=== PATIENT | male | born 1975 | race African-American/Black ===

== ENCOUNTER 2021-12-12 18:33 | Emergency (ER) | payer MEDICAID, OTHER ==
[2021-12-12 18:33] VITALS: BP 148/92
[2021-12-12] MEDS ORDERED: NEOSPORIN OINT 0.9 GM PKT TOP ONE (22:50)
[2021-12-12] MEDS ORDERED: LIDOCAINE 1% MDV 20ML VIAL SC ONE (22:50)
== END 2021-12-13 | disposition home or self-care (01) ==
LOC: M ED 18:33
DX: S01.511A Laceration without foreign body of lip, initial encounter (principal); S01.512A Laceration without foreign body of oral cavity, initial encounter; W50.0XXA Accidental hit or strike by another person, initial encounter; Y92.410 Unspecified street and highway as the place of occurrence of the external cause; Y93.64 Activity, baseball; Y99.9 Unspecified external cause status; F17.200 Nicotine dependence, unspecified, uncomplicated

== ENCOUNTER 2022-09-28 05:50 | Emergency (ER) | payer OTHER ==
[~2022-09-28] VITALS: Ht 160 cm; Wt 80.7 kg
[2022-09-28 05:51] VITALS: BP 124/84
== END 2022-09-28 07:15 | disposition home or self-care (01) ==
LOC: M ED 05:50
DX: S76.311A Strain of muscle, fascia and tendon of the posterior muscle group at thigh level, right thigh, initial encounter (principal); Y93.01 Activity, walking, marching and hiking; Y92.009 Unspecified place in unspecified non-institutional (private) residence as the place of occurrence of the external cause

== ENCOUNTER 2024-04-16 05:56 | Emergency (ER) | payer OTHER ==
[~2024-04-16] VITALS: Ht 160 cm; Wt 79.1 kg
[2024-04-16 06:48] LABS: BASO % 0.1 % (0.0-1.0); EOS # 0.1 10^3/uL (0.0-0.5); EOS % 1.6 % (0.0-3.0); HEMATOCRIT 42.1 % (42.0-52.0); HEMOGLOBIN 14.3 g/dl (13.5-17.5); LYMPH % 14.1 % (24.0-44.0); MEAN CORPUSCULAR HEMOGLOBIN 28.5 pg (27.0-33.0); MEAN CORPUSCULAR VOLUME 83.9 fl (80.0-96.0); MONO # 0.4 10^3/uL (0.0-0.8); MONO % 6.2 % (2.0-8.0); NEUTROPHILS # 5.5 10^3/uL (1.5-8.5); NEUTROPHILS % 77.7 % (36.0-66.0); PLATELET COUNT, AUTOMATED 141 10^3/uL (150-450); RED BLOOD COUNT 5.02 10^6/uL (4.30-6.10); WHITE BLOOD COUNT 7.1 10^3/uL (4.0-10.0)
[2024-04-16 06:49] VITALS: BP 185/114
[2024-04-16] MEDS: hydrALAZINE 20MG/ML 1ML VIAL IV STA (06:49)
[2024-04-16] MEDS: methocarbamoL 500 MG TAB PO ONE (06:49)
[2024-04-16 07:22] LABS: ALBUMIN 4.2 G/DL (3.2-5.2); ALKALINE PHOSPHATASE 68 U/L (46-116); ALT/SGPT 30 U/L (7.0-40); AST/SGOT 25 U/L (<34); BILIRUBIN,DIRECT 0.3 MG/DL (<0.4); BILIRUBIN,TOTAL 1.2 MG/DL (0.3-1.2); BLOOD UREA NITROGEN 9 MG/DL (9-23); CALCIUM LEVEL 9.2 MG/DL (8.5-10.1); CARBON DIOXIDE LEVEL 27 MMOL/L (20-31); CHLORIDE LEVEL 106 MMOL/L (98-107); CK-MB VALUE MASS 3.8 NG/ML (<3.6); GLOMERULAR FILTRATION RATE > 60.0 (>60); GLUCOSE, FASTING 124 MG/DL (60-100); SODIUM LEVEL 137 MMOL/L (136-145); TOTAL PROTEIN 7.6 G/DL (5.7-8.2)
[2024-04-16] MEDS ORDERED: ISOVUE-370 76% 100ML VIAL As Ordered ONE (07:33)
[2024-04-16 07:38] LABS: CPK CREATINE PHOSPHOKINASE 581 U/L (46-171); MB/CK RELATIVE INDEX 0.65 (< OR =4)
[2024-04-16] MEDS: NS 1,000 ML IV ONE (08:02)
[2024-04-16] MEDS: niCARdipine IV 40 MG in IV 1 EA IV SCH (08:07)
[2024-04-16 09:01] LABS: CK-MB VALUE MASS 3.8 NG/ML (<3.6)
[2024-04-16 09:05] LABS: MB/CK RELATIVE INDEX 0.68 (< OR =4)
[2024-04-16 11:40] VITALS: BP 126/73; TEMP 99.5; O2SAT 95
== END 2024-04-16 11:50 | disposition short-term general hospital (02) ==
LOC: M ED 05:56
DX: I71.02 Dissection of abdominal aorta (principal)
CPT/HCPCS: 36415; 71045; 71275; 74174; 80047; 80048; 80076; 82550; 82553; 84484; 85025; 93005; 96365; 96366; 96374; 99285; J0360; Q9967